=== PATIENT | male | born 1980 | race Caucasian/White ===

== ENCOUNTER 2023-10-24 13:13 | Inpatient (IN) | payer OTHER ==
[~2023-10-24] VITALS: Ht 185.4 cm; Wt 102.0 kg
[2023-10-24 19:40] VITALS: BP 142/93; PULSE 71; RESP 19; TEMP 98.9; O2SAT 99
[2023-10-24] MEDS ORDERED: ONDANSETRON HCL 4 MG/2 ML VIAL IVP PRN ×3 (21:30→23:30)
[2023-10-24] MEDS ORDERED: GABA-1181 PO (22:12)
[2023-10-24] MEDS ORDERED: HALO5TAB23 PO (22:12)
[2023-10-24] MEDS ORDERED: HALO5VIA16 IM (22:12)
[2023-10-24] MEDS ORDERED: HYDR-4808 PO (22:12)
[2023-10-24] MEDS ORDERED: LORA-999 PO (22:12)
[2023-10-24] MEDS ORDERED: AMLO-258 PO (22:12)
[2023-10-24] MEDS ORDERED: LEVE500S33 PO (22:12)
[2023-10-24] MEDS ORDERED: MAGN1PIG IVPB (22:12)
[2023-10-24] MEDS ORDERED: ONDA4VIA60 IVP (22:27)
[2023-10-24] MEDS ORDERED: MORP2CAR IVP (22:27)
[2023-10-24] MEDS ORDERED: PANT-31 PO (22:27)
[2023-10-24] MEDS ORDERED: SERT-162 PO (22:27)
[2023-10-24] MEDS ORDERED: ONDA-104 PO (22:27)
[2023-10-24] MEDS ORDERED: NALO0.4V7 IVP (22:27)
[2023-10-24] MEDS ORDERED: HydrOXYzine PAMOATE 25 MG CAPSULE PO PRN (23:00)
[2023-10-24] MEDS ORDERED: ONDANSETRON 4 MG TABLET PO PRN (23:00)
[2023-10-24] MEDS ORDERED: HALOPERIDOL LACTATE 5 MG/ML VIAL IM PRN (23:00)
[2023-10-24] MEDS ORDERED: HALOPERIDOL 5 MG TABLET PO PRN (23:00)
[2023-10-24] MEDS: PB/HYOSCY/ATR/SCOP/LIDO/MAALOX 55 ML BOTTLE PO ONE (23:16)
[2023-10-24] MEDS: SODIUM CHLORIDE 0.9% 500 ML IV ONE (23:16)
[2023-10-24] MEDS: LevETIRAcetam 500 MG TABLET PO SCH (23:30)
[2023-10-24] MEDS: HEPARIN SODIUM,PORCINE 5,000 UNITS/ML VIAL SQ SCH (23:41)
[2023-10-25] MEDS: MORPHINE SULFATE 2 MG/ML SYRINGE IVP PRN ×2 (05:18→15:47)
[2023-10-25] MEDS: PANTOPRAZOLE SODIUM 40 MG DR TABLET PO SCH (06:27)
[2023-10-25] MEDS: AmLODIPine BESYLATE 10 MG TABLET PO SCH (08:32)
[2023-10-25] MEDS: GABAPENTIN 300 MG CAPSULE PO SCH (08:32)
[2023-10-25] MEDS: LORazepam 0.5 MG TABLET PO PRN (08:33)
[2023-10-25] MEDS: SERTRALINE HCL 100 MG TABLET PO SCH (08:33)
[2023-10-25] MEDS: DOCUSATE SODIUM 100 MG CAPSULE PO SCH (08:35)
[2023-10-25 11:21] LABS: BASOPHILS % (AUTO) 0.9 % (0.0-2.0); EOSINOPHILS % (AUTO) 2.1 % (1.0-6.0); HEMATOCRIT 40.1 % (41-53); HEMOGLOBIN 13.6 g/dL (13.5-17.5); LYMPHOCYTES # (AUTO) 1.2 K/uL (1.0-4.8); LYMPHOCYTES % (AUTO) 24.4 % (22.0-44.0); MEAN CORPUSCULAR HEMOGLOBIN 29.5 pg (26.0-34.0); MEAN CORPUSCULAR VOLUME 87 fL (80-100); MONOCYTES # (AUTO) 0.3 K/uL (0.1-1.0); MONOCYTES % (AUTO) 6.6 % (2.0-9.0); NEUTROPHILS # (AUTO) 3.3 K/uL (1.8-7.7); PLATELET COUNT (AUTO) 272 K/uL (150-450); RED BLOOD CELL COUNT(AUTO) 4.61 MIL/uL (4.50-5.90); RED CELL DISTRIBUTION WIDTH 13.4 % (11.5-14.5); WHITE BLOOD COUNT (AUTO) 5.1 K/uL (4.5-11.0)
[2023-10-25 11:38] LABS: ANION GAP 9 mmol/L (8-16); CALCIUM, TOTAL 9.3 mg/dL (8.8-10.5); CARBON DIOXIDE 26 mmol/L (22-29); CHLORIDE 104 mmol/L (98-107); CREATININE 0.93 mg/dL (0.60-1.30); GLOMERULAR FILTR. RATE CALC > 60 mL/min (>60); GLUCOSE,RANDOM 101 mg/dL (70-110); POTASSIUM 3.6 mmol/L (3.5-5.1); SODIUM SERUM 139 mmol/L (136-145); UREA NITROGEN, BLOOD 12 mg/dL (7-18)
[2023-10-25 19:30] VITALS: BP 155/104; PULSE 68; RESP 20; TEMP 98; O2SAT 98
[2023-10-26 03:49] VITALS: TEMP 98.3
[2023-10-26] MEDS: SERTRALINE HCL 100 MG TABLET PO SCH (09:00)
[2023-10-26 15:15] VITALS: BP 136/93; PULSE 80; RESP 18; TEMP 98.1; O2SAT 99
[2023-10-26] MEDS: PB/HYOSCY/ATR/SCOP/LIDO/MAALOX 55 ML BOTTLE PO ONE (22:44)
[2023-10-26] MEDS ORDERED: HALOPERIDOL LACTATE 5 MG/ML VIAL IM ONE (22:45)
[2023-10-27] MEDS: BuPROPion HCL XL 150 MG ER TABLET PO SCH (13:27)
[2023-10-27 15:34] VITALS: BP 132/97; PULSE 75; RESP 20; TEMP 98.7; O2SAT 99
[2023-10-27 16:04] VITALS: BP 139/92; PULSE 75; TEMP 98.2
[2023-10-27 19:29] VITALS: BP 134/83; PULSE 83; RESP 20; TEMP 98.6; O2SAT 96
[2023-10-28 01:06] LABS: HEPATITIS C AB (EIA) Reactive (Non Reactive)
[2023-10-28 06:00] VITALS: BP 130/86; PULSE 79; RESP 20; TEMP 98.3; O2SAT 100
[2023-10-28] MEDS: SERTRALINE HCL 100 MG TABLET PO SCH (08:34)
[2023-10-28 19:11] VITALS: BP 135/87; PULSE 85; RESP 18; TEMP 98.6; O2SAT 97
[2023-10-29 08:04] VITALS: BP 141/80; PULSE 77; RESP 18; TEMP 98.1; O2SAT 98
[2023-10-30 06:20] VITALS: BP 132/90; PULSE 75; RESP 18; TEMP 98.3; O2SAT 98
[2023-10-30 08:49] VITALS: BP 120/98; PULSE 76; RESP 19; TEMP 97.5; O2SAT 98
[2023-10-30 19:30] VITALS: BP 134/77; PULSE 80; RESP 18; TEMP 98.6; O2SAT 98
[2023-10-31 08:33] VITALS: BP 134/79; PULSE 89; RESP 20; TEMP 98.4; O2SAT 99
[2023-10-31 15:23] VITALS: BP 140/87; PULSE 89; RESP 20; TEMP 98.9; O2SAT 99
[2023-10-31 19:11] VITALS: BP 145/85; PULSE 89; RESP 20; TEMP 97.8; O2SAT 98
[2023-11-01 05:10] VITALS: BP 121/86; PULSE 96; RESP 20; TEMP 98.2; O2SAT 100
[2023-11-01 07:11] VITALS: BP 139/100; PULSE 85; RESP 20; TEMP 98.9; O2SAT 100
[2023-11-01 07:12] VITALS: BP 145/94; RESP 20; O2SAT 100
[2023-11-01 15:43] VITALS: BP 151/90; PULSE 87; RESP 20; TEMP 98.2; O2SAT 100
[2023-11-01 16:06] LABS: HEPATITIS C RT-PCR,QNT HCV Not Detected IU/mL
[2023-11-01 20:00] VITALS: BP 145/88; PULSE 95; RESP 20; TEMP 98.5; O2SAT 98
[2023-11-02 07:53] VITALS: BP 140/86; PULSE 85; RESP 20; TEMP 97.9; O2SAT 100
[2023-11-02] MEDS ORDERED: HALOPERIDOL LACTATE 5 MG/ML VIAL IM PRN (11:45)
[2023-11-02] MEDS ORDERED: LORazepam 2 MG/ML VIAL ONE (11:48)
[2023-11-02] MEDS ORDERED: DiphenhydrAMINE HCL 50 MG/ML VIAL ONE (11:48)
[2023-11-02] MEDS ORDERED: LORazepam 2 MG/ML VIAL IM PRN (13:00)
[2023-11-02] MEDS: DiphenhydrAMINE HCL 50 MG/ML VIAL IM ONE (13:00)
[2023-11-02] MEDS: LORazepam 2 MG/ML VIAL IM ONE (13:00)
[2023-11-02] MEDS: HALOPERIDOL LACTATE 5 MG/ML VIAL IM ONE (13:00)
[2023-11-02] MEDS ORDERED: BUPR-514 PO (13:44)
[2023-11-02] MEDS ORDERED: DOCU-385 PO (13:47)
[2023-11-02] MEDS ORDERED: LEVE-71 PO (13:49)
== END 2023-11-02 18:00 | DRG 394 ==
LOC: 6N 19:30
PROVIDERS: ADMIT Internal Medicine; ATTEND Internal Medicine
DX: T18.8XXA Foreign body in other parts of alimentary tract, initial encounter (principal); R45.851 Suicidal ideations; G40.909 Epilepsy, unspecified, not intractable, without status epilepticus; I10 Essential (primary) hypertension; F32.9 Major depressive disorder, single episode, unspecified; Z88.6 Allergy status to analgesic agent; W44.8XXA Other foreign body entering into or through a natural orifice, initial encounter; Z91.148 Patient's other noncompliance with medication regimen for other reason; Y93.89 Activity, other specified; Y92.89 Other specified places as the place of occurrence of the external cause; Y99.8 Other external cause status; B18.2 Chronic viral hepatitis C
CPT/HCPCS: 74018; 74176; 80048; 83735; 85025; 86803; 87340; 87522; J1200; J1630; J1644; J2060; J2270; J7040; 36415-L1; 36415-TC